=== PATIENT | male | born 1950 | race Caucasian/White ===

== ENCOUNTER → 2017-12-04 | Outpatient (CLI) | payer OTHER, MEDICARE ==
[~2017-12-04] MED LIST: AMBIEN 10 MG TA10 MG PO; HYDROCODON-ACE1 EACH PO; IBUPROFEN 800800 M1 PO; MEN PO; NEURONTIN 300300 M1 PO; PROPRANOLOL 8080 M1 PO; PROTONIX40 M2 PO; ZOMIG ZMT5 MG PO; [UNRECOGNIZED DRUG - OTHER] PO
== END ==
LOC: M.RAD 15:03
DX: R07.9 Chest pain, unspecified (principal); R35.0 Frequency of micturition; R68.89 Other general symptoms and signs

== ENCOUNTER → 2019-05-24 | Outpatient (CLI) | payer MEDICARE, OTHER ==
[2019-05-24 10:12] LABS: CREATININE 1.1 mg/dL (0.6-1.3)
== END ==
LOC: M.CT 09:44
PROVIDERS: Internal Medicine
DX: K44.9 Diaphragmatic hernia without obstruction or gangrene (principal); M47.816 Spondylosis without myelopathy or radiculopathy, lumbar region